=== PATIENT | male | born 2000 | race Caucasian/White ===

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

== ENCOUNTER → 2025-01-30 | Outpatient (CLI) | payer MEDICAID ==
[~2025-01-30] MED LIST changes: +FLUO-290 PO; +IBUP-1621 PO; +PROZ10CA11 PO; +RISP-105 PO; +TRAZ-252 PO
== END ==
LOC: M OUTALCOH 10:27
PROVIDERS: ATTEND Psychiatry & Neurology Psychiatry
DX: F10.10 Alcohol abuse, uncomplicated (principal); F17.200 Nicotine dependence, unspecified, uncomplicated

== ENCOUNTER 2025-03-06 09:55 | Outpatient (RCR) | payer MEDICAID | END 2025-03-07 | LOC: M OUTALCOH 09:55 | PROVIDERS: ATTEND Psychiatry & Neurology Psychiatry | DX: F10.10 Alcohol abuse, uncomplicated (principal); F17.200 Nicotine dependence, unspecified, uncomplicated ==